=== PATIENT | male | born 1990 | race Caucasian/White ===

== ENCOUNTER 2019-06-26 10:37 | Emergency (ER) | payer OTHER ==
[~2019-06-26] VITALS: Ht 162.6 cm; Wt 78.0 kg
[~2019-06-26 10:37] MED LIST: LORA-441 PO; NAPR-985 PO
[2019-06-26 10:45] VITALS: BP 140/78; PULSE 127; RESP 18; Ht 162.6 cm; Wt 78.0 kg
[2019-06-26] MEDS ORDERED: LORAZEPAM 1 MG TAB PO ONE (13:00)
== END 2019-06-26 14:33 | disposition home or self-care (01) ==
LOC: FTE 10:37
DX: F41.9 Anxiety disorder, unspecified (principal); R07.9 Chest pain, unspecified
CPT/HCPCS: 36415; 71045; 80048; 84484; 85025; 93005